=== PATIENT | male | born 2000 | race Caucasian/White ===

== ENCOUNTER 2018-01-25 01:12 | Emergency (ER) | payer SELFPAY ==
[~2018-01-25] VITALS: Ht 175.3 cm; Wt 72.7 kg
[2018-01-25 01:13] VITALS: Ht 175.3 cm; Wt 72.7 kg
[2018-01-25 01:37] VITALS: BP 125/64
== END 2018-01-25 01:39 | disposition home or self-care (01) ==
LOC: D.ER 01:12
DX: F41.9 Anxiety disorder, unspecified (principal)

== ENCOUNTER 2018-08-02 23:02 | Emergency (ER) | payer SELFPAY ==
[~2018-08-02] VITALS: Ht 175.3 cm; Wt 59.1 kg
[2018-08-02 23:26] LABS: BASOPHILS 0.6 % (0-2); EOSINOPHILS 2.8 % (0-7); HEMATOCRIT 42.6 % (42.0-54.0); HEMOGLOBIN 14.6 g/dL (13.5-17.5); LYMPHOCYTES 38.5 % (15-50); MCH 30.5 pg (26.0-34.0); MCHC 34.3 g/dL (31.0-37.0); MCV 88.9 fL (80.0-100.0); MEAN PLATELET VOLUME 10.5 fL (7.4-10.4); NEUTROPHILS 51.1 % (40-80); PLATELET COUNT 244 10x3/uL (130-400); RBC 4.79 10x6/uL (4.20-6.10); WBC 6.9 10x3/uL (4.8-10.8)
[2018-08-02 23:38] LABS: ALBUMIN 3.7 g/dL (3.4-5.0); ALKALINE PHOSPHATASE 93 U/L (46-116); ALT (SGPT) 22 U/L (10-68); BILIRUBIN - TOTAL 0.28 mg/dL (0.2-1.3); CALC OSMOLALITY 284 mosm/kg (275-300); CALCIUM 8.1 mg/dL (8.5-10.1); CARBON DIOXIDE 26.2 mmol/L (21.0-32.0); CHLORIDE - SERUM 106 mmol/L (98-107); CREATINE KINASE 150 UL (21-232); GLUCOSE 92 mg/dL (74-106); MAGNESIUM - SERUM 1.9 mg/dL (1.8-2.4); POTASSIUM - SERUM 3.6 mmol/L (3.5-5.1); SODIUM 143 mmol/L (136-145); UREA NITROGEN 12 mg/dL (7-18); eGFR NON AFRICAN AMERICAN > 90 mL/min (90-120)
== END 2018-08-02 23:50 | disposition home or self-care (01) ==
LOC: D.ER 23:02
PROVIDERS: Family Medicine
DX: R56.9 Unspecified convulsions (principal)

== ENCOUNTER 2018-08-05 22:06 | Emergency (ER) | payer SELFPAY ==
[~2018-08-05] VITALS: Ht 175.3 cm; Wt 68.2 kg
[2018-08-05 22:14] VITALS: Ht 175.3 cm; Wt 68.2 kg
[2018-08-05 23:38] VITALS: BP 104/65
== END 2018-08-05 23:38 | disposition home or self-care (01) ==
LOC: D.ER 22:06
DX: F41.9 Anxiety disorder, unspecified (principal)